=== PATIENT | male | born 1985 | race Caucasian/White ===

== ENCOUNTER 2023-01-16 10:20 | Emergency (ER) | payer BC, SELFPAY ==
--- NOTE | ~2023-01-16 | XR_ITS ---
EXAMINATION: XR chest 2V DATE: 01/16/2023 10:44 INDICATION: Chest tightness. Left arm aching. TECHNIQUE: PA and lateral views of the chest were obtained. COMPARISON: None FINDINGS: The lungs are clear with no focal airspace opacities, pulmonary edema, pleural effusion or pneumothor ax. The cardiomediastinal silhouette is normal. Moderate thoracic spondylosis with mild anterior wedg ing of a few lower thoracic vertebral bodies. IMPRESSION: 1. No acute cardiopulmonary disease. Reviewed, dictated and finalized at location A.
--- NOTE | 2023-01-16 10:22 | ECG_ITS ---
Measurements Intervals [place] Rate: 87 P: 55 MI: 124 QRS: -8 QRSD: 96 T: 11 QT: 339 QTc: 410 Interpretive Statements SINUS RHYTHM VOLTAGE CRITERIA FOR LVH BORDERLINE T WAVE ABNORMALITY- INFERIOR LEADS BORDERLINE ECG NO PREVIOUS ECG AVAILABLE FOR COMPARISON Electronically Signed On 01-16-2023 10:34:21 CDT by Channing Bridges D.O.
[2023-01-16 10:36] VITALS: BP 193/94; PULSE 100; RESP 20; TEMP 36.4; O2SAT 100
[2023-01-16 10:43] LABS: Basophils Absolute Auto 0.1 K/mm3 (0.0-0.1); Basophils Percent Auto 0.8 % (0.2-1.2); Eosinophils Percent Auto 0.1 % (0-4.4); Hematocrit 43.2 % (42.0-52.0); Hemoglobin 14.4 g/dL (14.0-18.0); Immature Granulocyte Absolute 0.02 K/mm3 (0.00-0.031); Immature Granulocyte Percent A 0.3 % (0-0.5); Lymphocytes Absolute Auto 1.23 K/mm3 (0.9-3.2); Lymphocytes Percent Auto 16.5 % (18.3-44.2); Mean Corpuscular HGB Conc 33.3 g/dl (32-36); Mean Corpuscular Hemoglobin 29.3 pg (26-34); Mean Corpuscular Volume 87.8 fl (80-100); Mean Platelet Volume 9.9 fl (7.4-10.4); Monocytes Absolute Auto 0.7 K/mm3 (0.1-0.6); Monocytes Percent Auto 9.2 % (2.6-8.5); Neutrophils Absolute Auto 5.5 K/mm3 (1.3-6.7); Neutrophils Percent Auto 73.1 % (45.5-73.1); Platelet Count Result 272 k/mm3 (150-375); Red Blood Count 4.92 M/mm3 (4.6-6.20); Red Cell Distribution Width 13.1 % (11.5-14.5); White Blood Count 7.5 K/mm3 (4.5-10.0)
[2023-01-16 10:51] LABS: Partial Thromboplastin Time 29.4 SECONDS (22.3-36.8); Prothrombin Time 13.2 Seconds (11.1-14.7)
[2023-01-16 10:53] VITALS: BP 185/91; PULSE 93; RESP 16; TEMP 36.8; O2SAT 100
[2023-01-16 10:54] LABS: Alanine Aminotransferase 287 U/L (6-50); Albumin Level 5.1 g/dL (3.5-5.1); Alkaline Phosphatase 90 U/L (38-126); Anion Gap 6 mmol/L (8-16); Aspartate Amino Transferase 158 U/L (17-59); Bilirubin,Total 0.6 mg/dL (0.2-1.3); Blood Urea Nitrogen 15 mg/dL (9-20); Calcium 9.7 mg/dL (8.4-10.2); Carbon Dioxide 29 mmol/L (22-30); Chloride 99 mmol/L (98-107); Estimated Glomerular Filt Rate > 60; Glucose 109 mg/dL (65-110); Lipase 128 U/L (23-300); Potassium 3.7 mmol/L (3.4-5.0); Sodium 134 mmol/L (137-145)
[2023-01-16 11:05] LABS: Troponin I < 0.012 ng/mL (0.000-0.034)
--- NOTE | 2023-01-16 11:29 | ED.CHESTPAIN ---
HPI - Chest Pain General Chief Complaint: Chest Pain Stated Complaint: CP, LEFT ARM PAIN Time Seen by Provider: 01/16/23 10:48 History of Present Illness HPI narrative: 37-year-old male presented emergency department for evaluation of left arm pain and some chest pressure. Patient reports that yesterday he had been working overnight in the heat, came home and mow the grass and then had some beer and suspects he may have been dehydrated. When patient began having the left arm numbness he became concerned and called a family member who is a nurse. She told him that it was probably dehydration and arm strain. Over the course of the morning patient did develop some chest pressure and presented to the ED for evaluation. Patient does report daily alcohol consumption. Patient denies any previous cardiac history although he does have a family history. Patient reports he has had some issues with elevated blood pressure but has not had follow-up with his primary care physician for his blood pressures. Related Data Allergies Allergy/AdvReac Type Severity Reaction Status Date / Time No Known Allergies Allergy Verified 01/16/23 11:49 Review of Systems Review of Systems: All systems reviewed & are unremarkable except as noted in HPI and below Exam Narrative: APPEARANCE: Well appearing, no pain, no distress, well-nourished. HEAD: normocephalic, atraumatic. EYES: PERRLA/EOMI, conjunctivae clear. NOSE: Normal no drainage NECK: Supple. No adenopathy, no masses. RESPIRATORY: Airway patent, respirations nonlabored. Clear to auscultation bilaterally, no rales, rhonchi, wheezing. CARDIOVASCULAR: Regular rate and rhythm without murmurs rubs or gallops. ABDOMINAL: Soft, nontender, nondistended, normal bowel sounds MUSCULOSKELETAL: Moves all extremities. Strength/ROM intact, No edema, No calf tenderness. NEURO: Alert. Cranial nerves II through XII intact. Grossly intact SKIN: Warm, dry. Normal Color PSYCHIATRIC: Normal affect/mood. Course Course Emergency Course: 37-year-old male presented ED for evaluation of chest pain. Patient was afebrile with no leukocytosis and a stable hemoglobin of 14.4. Patient has no significant electrolyte abnormalities. Patient does have a bump in his AST and ALT but this may be secondary to alcohol consumption. Patient had negative serial troponins. Chest x-ray shows no acute cardiopulmonary abnormality. EKG showed no evidence of ischemia. Patient and family were updated on the results of the work-up. Patient family encouraged of close follow-up with the primary care physician for additional outpatient cardiac testing. All questions and concerns were addressed Vital Signs Vital signs: Vital Signs Temperature 97.6 F 01/16/23 10:36 Pulse Rate 100 01/16/23 10:36 Respiratory Rate 20 01/16/23 10:36 Blood Pressure 193/94 H 01/16/23 10:36 Pulse Oximetry 100 01/16/23 10:36 Temperature 98.3 F 01/16/23 10:53 Pulse Rate 84 01/16/23 14:41 Respiratory Rate 17 01/16/23 14:41 Blood Pressure 138/85 01/16/23 14:41 Pulse Oximetry 98 01/16/23 14:41 Oxygen Delivery Room Air 01/16/23 10:53 MDM - Chest Pain Differential Diagnosis Differential diagnosis: Likely pneumothorax, atypical chest pain, costochondritis and chest pain Lab Data Attestation: I reviewed the patient's lab results. 01/16/23 10:32 01/16/23 10:32 Labs: Lab Results 01/16/23 01/16/23 Range/Units 10:32 13:29 WBC 7.5 (4.5-10.0) K/mm3 RBC 4.92 (4.6-6.20) M/mm3 Hgb 14.4 (14.0-18.0) g/dL Hct 43.2 (42.0-52.0) % MCV 87.8 (80-100) fl MCH 29.3 (26-34) pg MCHC 33.3 (32-36) g/dl RDW 13.1 (11.5-14.5) % Plt Count 272 (150-375) k/mm3 MPV 9.9 (7.4-10.4) fl Immature Gran % (Auto) 0.3 (0-0.5) % Neut % (Auto) 73.1 (45.5-73.1) % Lymph % (Auto) 16.5 L (18.3-44.2) % [place] % (Auto) 9.2 H (2.6-8.5) % Eos % (Auto) 0.1 (0-4.4) % Baso %
[2023-01-16] MEDS: SODIUM CHLORIDE 0.9% IV 1,000 ML 999 ML IV CONT (11:49)
[2023-01-16 12:22] VITALS: BP 166/89; PULSE 80; RESP 17; O2SAT 100
[2023-01-16] MEDS: ASPIRIN 81 MG CHEWABLE TABLET 324 MG PO (12:23)
[2023-01-16] MEDS: NITROGLYCERIN SL 0.4 MG TABLET SUBLINGUAL (12:24)
[2023-01-16 13:36] VITALS: BP 147/96; PULSE 76; RESP 18; O2SAT 100
[2023-01-16 14:04] LABS: Troponin I < 0.012 ng/mL (0.000-0.034)
[2023-01-16 14:41] VITALS: BP 138/85; PULSE 84; RESP 17; O2SAT 98
== END 2023-01-16 14:49 | disposition home or self-care (01) ==
PROVIDERS: Emergency Provider Emergency Medicine
DX: R07.89 Other chest pain (principal)
CPT/HCPCS: 36415; 71046; 80053; 83690; 84484; 85025; 85610; 85730; 93005; 96360; 99284; A9270; J7030

== ENCOUNTER 2023-02-07 10:58 | Outpatient (CLI) | payer BC, SELFPAY ==
--- NOTE | ~2023-02-07 | US_ITS ---
Limited Abdominal Sonogram: Real-time sonographic imaging of the right upper quadrant was performed. Clinical History: Abnormal liver enzymes Findings: The liver appears mildly echogenic, with no evidence of mass lesion or bile duct dilatatio n. Main portal vein demonstrates normal direction of flow. The gallbladder is well distended, and octavia ears normal with no evidence of gallstone or wall thickening. The common bile duct measures 4 mm. Th e visualized pancreas, aorta, and IVC are unremarkable. Impression: Diffuse fatty infiltration of liver. Reviewed, dictated and finalized at location M. Impression: Diffuse fatty infiltration of liver.
== END 2023-02-07 10:59 | disposition home or self-care (01) ==
PROVIDERS: PCP Internal Medicine Hematology & Oncology; Visit Provider Internal Medicine Hematology & Oncology
DX: R74.01 Elevation of levels of liver transaminase levels (principal); K76.0 Fatty (change of) liver, not elsewhere classified
CPT/HCPCS: 76705